=== PATIENT | female | born 1960 | race Caucasian/White ===

== ENCOUNTER 2016-07-06 08:56 | Inpatient (IN) | payer BC, OTHER ==
[2016-06-18 09:49] VITALS: BMI 38.0
--- NOTE | 2016-06-18 10:02 | PAT Medication Instructions ---
Service Date Jun 18, 2016. Current Home Medication List Acetaminophen (Tylenol), 1,000 MG PO Q8 PRN for Pain Albuterol (Ventolin), 2 PUFFS INH QID PRN for Shortness of Breath Glimepiride (Glimepiride), 1 TAB PO QAM Lorazepam (Ativan), 1 MG PO QPM Melatonin (Kp Melatonin), 1 TAB PO HS PRN for Sleep Meloxicam (Mobic), 15 MG PO QAM Metformin Hcl (Glucophage), 1,000 MG PO BID Mometasone Furoate-Formoterol (Dulera 200/5 Mcg), 2 PUFFS INH BID Pantoprazole (Protonix), 40 MG PO QPM Sertraline (Zoloft), 100 MG PO QPM Medication Instructions For Your Scheduled Surgery - Hold the following medications 2 weeks prior to surgery per surgeon's instructions: Meloxicam (Mobic), 15 MG PO QAM - Hold the following medications 48 hours prior to surgery: Metformin Hcl (Glucophage), 1,000 MG PO BID - Hold the following medications the morning of surgery: Glimepiride (Glimepiride), 1 TAB PO QAM - Take the following medications the morning of surgery with a sip of water OTHERWISE NOTHING TO EAT OR DRINK AFTER MIDNIGHT: Albuterol (Ventolin), 2 PUFFS INH QID PRN for Shortness of Breath (use if needed ; BRING TO HOSPITAL) Acetaminophen (Tylenol), 1,000 MG PO Q8 PRN for Pain (may use if needed up to 4 hours prior to surgery) Mometasone Furoate-Formoterol (Dulera 200/5 Mcg), 2 PUFFS INH BID - Take the following medications as scheduled the night before surgery: Albuterol (Ventolin), 2 PUFFS INH QID PRN for Shortness of Breath Acetaminophen (Tylenol), 1,000 MG PO Q8 PRN for Pain Pantoprazole (Protonix), 40 MG PO QPM Lorazepam (Ativan), 1 MG PO QPM Melatonin (Kp Melatonin), 1 TAB PO HS PRN for Sleep Sertraline (Zoloft), 100 MG PO QPM Mometasone Furoate-Formoterol (Dulera 200/5 Mcg), 2 PUFFS INH BID If you have any questions please call us at [phone] or [phone] or [phone]
[2016-06-18 10:56] LABS: BASO % 0.1 %; BASO ABS # 0.01 K/uL (0-0.2); COMPLETE YES; EOS % 1.9 %; HEMATOCRIT 36.1 % (37-47); IG% 0.6 %; LYMPH % 17.9 %; LYMPH ABS # 1.39 K/uL (1.2-3.4); MEAN CELL VOLUME 81.9 fL (80-100); MEAN CORPUSCULAR HEMOGLOBIN 26.5 pg (25-34); MEAN CORPUSCULAR HGB CONC 32.4 g/dl (32-36); MEAN PLATELET VOLUME 9.7 fL (7.4-10.4); MONO % 6.7 %; NEUT % 72.8 %; PLATELET COUNT 203 K/uL (130-400); RED BLOOD COUNT 4.41 M/uL (4.2-5.4); WHITE BLOOD COUNT 7.75 K/uL (4.8-10.8)
[2016-06-18 11:10] LABS: INR 1.1 (0.9-1.1); PROTHROMBIN TIME (PATIENT) 11.3 SECONDS (9.0-12.0)
[2016-06-18 12:06] LABS: ESTIMATED AVERAGE GLUCOSE 143 mg/dl; HA1C FLAG Normal (Normal)
[2016-06-18 12:36] LABS: BLOOD UREA NITROGEN 17 mg/dl (7-18); BUN/CREATININE RATIO 26.2 (10-20); CALCIUM 9.2 mg/dl (8.5-10.1); CARBON DIOXIDE 29 mmol/L (21-32); CHLORIDE 105 mmol/L (98-107); CREATININE 0.65 mg/dl (0.60-1.20); GLUCOSE 125 mg/dl (70-99); POTASSIUM 3.9 mmol/L (3.5-5.1); SODIUM 141 mmol/L (136-145)
[2016-06-18 12:39] LABS: C-REACTIVE PROTEIN < 0.29 mg/dl (0-0.29)
--- NOTE | 2016-07-02 08:22 | HISTORY & PHYSICAL EXAMINATION ---
DATE OF ADMISSION: 07/06/2016 CHIEF COMPLAINT: Right knee pain. HISTORY OF PRESENT ILLNESS: A 56-year-old white female now about 3 years out from left knee placement who presents for surgical treatment of her right knee. She has got a long history of right knee pain and discomfort and I have been managing this over the past several years with oral medicines and injections. This has become less successful over time. She gets a fairly sharp pain and catching in her knee and causes it to buckle. She has pain that wax and wane and sometimes pretty severe pain for several days before it lets up. The shots only help her temporarily for about a week or so. She would like to have her right knee fixed. Of note, the patient does have a history of a right knee arthroscopy on this side back in 2010 with minimal relief. PAST MEDICAL HISTORY: 1. Diabetes x10 years. 2. Sleep apnea. 3. Anxiety/depression. 4. Gastroesophageal reflux disease. 5. Obesity with a BMI of 38.7. 6. Skin cancer. PAST SURGICAL HISTORY: Include: 1. Herniorrhaphy. 2. Bowel resection. 3. Bilateral knee scopes. 4. Left knee replacement done 07/24/2013. 5. Hysterectomy. 6. x2. ALLERGIES: None. CURRENT MEDICINES: Include: 1. Metformin. 2. Glimepiride. 3. Meloxicam. 4. Zoloft. 5. Lorazepam. 6. Melatonin. 7. Dulera inhaler. SOCIAL HISTORY: A 56-year-old female. She is from [place]. She is . Rare alcohol intake. Does not smoke. FAMILY HISTORY: Noncontributory. REVIEW OF SYSTEMS: Significant for diabetes. Denies any chest pain, no shortness of breath. No history of DVT or PE. PHYSICAL EXAMINATION: GENERAL: Reveals healthy pleasant, middle-aged female. Looks to be in pretty reasonable health. HEAD, EYES, EARS, NOSE, AND THROAT EXAMINATION: Benign. NECK: Supple. No lymphadenopathy. LUNGS: Clear to auscultation. HEART: Has a regular rate and rhythm. ABDOMEN: Soft, nontender, nondistended. EXTREMITY EXAMINATION: Grossly neurovascularly intact except as follows: Examination of the right leg reveals the patient walks with a slight bit of a limp. She does have bony hypertrophy diffusely around her knee, but more medially than laterally. Small knee effusion. Range of motion about 10 degrees short of full extension to 115 degrees of flexion. Fairly stiff knee. No pain with hip motion. She is neurologically intact. X-RAYS: X-rays of the right knee reviewed. It shows advanced right knee tricompartmental DJD. She has got complete loss of medial joint space. She has osteophytes in all 3 compartments. She has got subchondral sclerosis. ASSESSMENT: A 56-year-old white female 3 years out from left knee replacement with advanced right knee degenerative joint disease. She has failed conservative treatment. She would like to have her right knee replaced. PLAN: We will take her to the operating room and do right total knee replacement. The risks of this procedure were explained to the patient including but not limited to DVT, PE, , infection, neurological injury, vascular injury, bleeding problem, pain, limited range of motion, stiffness, failure to relieve symptoms, incomplete relief of symptoms, need for further surgery in the future, fracture, leg length inequality, nerve palsy, etc. The patient understands and desires to proceed. Informed consent was obtained. As far as discharge plans, she is planning to be discharged to home and do outpatient therapy. I will be seeing her back 2 weeks postop.
[2016-07-06] VITALS (8 sets, daily range): BP systolic 107–130; BP diastolic 68–80; PULSE 66–89; TEMP 36.5–36.9; O2SAT 92–99; Ht 160 cm; Wt 99.0 kg
[~2016-07-06] VITALS: Ht 160 cm; Wt 99.0 kg
[~2016-07-06 08:56] MED LIST: ACET-1256 PO; ACETAMINOPHEN 500 MG TAB PO SCH; ALBUAER2 INH; AMR2 PO; ATV/1 PO; BUPIVACAINE 0.25% 30 ML VIAL ONE; BUPIVACAINE 0.5 % 5 MG/1 ML PF 10ML VIAL ONE; BUPIVACAINE LIPOSOME 266 MG, BUPIVACAINE/EPINEPHRINE INJ 50 ML, SODIUM CHLORIDE 0.9% PF... INFIL SCH; CEFAZOLIN 2000 MG/60 ML D5W 60 ML IV SCH; FAMOTIDINE 20 MG TAB PO SCH; FLUT1INH INH; GABAPENTIN 300 MG CAP PO SCH; LACTATED RINGER'S 1000ML 1,000 ML IV SCH; LACTATED RINGER'S 1000ML 500 ML IV ONE; LACTATED RINGER'S 1000ML IV SCH; MELA1TAB5 PO; MELO7.5T5 PO; METF-384 PO; METOCLOPRAMIDE HCL 10 MG TAB PO SCH; PANT1TAB48 PO; SCOPOLAMINE 1.5 MG TDSY TD SCH; SERT-234 PO; TRANEXAMIC ACID INJ 1,000 MG in SODIUM CHLORIDE 0.9% 100ML 100 ML IV SCH
[2016-07-06] MEDS ORDERED: ONDANSETRON INJ 2 MG/ML 2 ML VIAL ONE (09:14)
[2016-07-06] MEDS ORDERED: FENTANYL CITRATE INJ 50 MCG/1 ML 2 ML VIAL ONE (09:14)
[2016-07-06] MEDS ORDERED: MIDAZOLAM HCL 1 MG/ML 2ML VIAL ONE ×2 (09:14)
[2016-07-06] MEDS ORDERED: PROPOFOL IV EMULSION 10 MG/ML 20 ML VIAL IV ONE ×2 (09:14→11:52)
--- NOTE | 2016-07-06 10:28 | History & Physical Bridge Note ---
H&P Re-Evaluation Bridge Note: I have examined the patient, reviewed the History & Physical and in the interval since the performance of the History & Physical I have noted the following changes of clinical significance: No changes noted
[2016-07-06] MEDS ORDERED: SODIUM CHLORIDE 0.9% PF 50 ML VIAL ONE (10:33)
[2016-07-06] MEDS ORDERED: BUPIVACAINE/EPINEPHRINE 0.25% 1:200,000 30 ML VIAL ONE (10:33)
[2016-07-06] MEDS ORDERED: BACITRACIN 50000 UNIT VIAL ONE (10:34)
[2016-07-06] MEDS ORDERED: BUPIVACAINE LIPOSOME 1/3% 266 MG/20 ML VIAL INFIL ONE (10:34)
[2016-07-06] MEDS ORDERED: ATROPINE SULFATE 0.1 MG/ML 5ML SYR IV PRN (12:00)
[2016-07-06] MEDS ORDERED: NALOXONE HCL 0.4 MG/1 ML VIAL/CARP IV PRN (12:00)
[2016-07-06] MEDS ORDERED: PROMETHAZINE HCL INJ 12.5 MG in SODIUM CHLORIDE 0.9% 50ML 50 ML IV PRN (12:00)
[2016-07-06] MEDS ORDERED: EpHEDrine SULFATE INJ 50 MG/ML AMP IV PRN (12:00)
[2016-07-06] MEDS ORDERED: FLUMAZENIL 0.1 MG/1 ML 10 ML VIAL IV PRN (12:00)
[2016-07-06] MEDS ORDERED: ONDANSETRON INJ 2 MG/ML 2 ML VIAL IV PRN ×2 (12:00→12:30)
--- NOTE | 2016-07-06 12:20 | [facility] Post Operative Brief Note ---
Immediate Operative Summary Operative Date July 06, 2016. Pre-Operative Diagnosis Right Knee Degenerative Joint Disease Post-Operative Diagnosis Same as preop Procedure(s) Performed Right Total Knee Arthroplasty Surgeon Dr. Lynne Pattern Weaver Surgeon(s) Brian Castillo PA-C Estimated Blood Loss 50 mL Findings Right Knee DJD Fluids (cc crystalloids) 1300 cc Specimens A. Right Knee Bone and Tissue Drains None Anesthesia Spinal Complication(s) None Disposition Recovery Room / PACU
[2016-07-06] MEDS ORDERED: SILVER SULFADIAZINE 1% CR 50 GM JAR EXT PRN (12:30)
[2016-07-06] MEDS ORDERED: ALUMINUM/MAGNESIUM/SIMETH (MAALOX MAX) 30 ML UDC PO PRN (12:30)
[2016-07-06] MEDS ORDERED: DEXTROSE 50% 50 ML SYR IV PRN (12:30)
[2016-07-06] MEDS ORDERED: GLUCOSE 40% GEL 15 GM TUBE PO PRN (12:30)
[2016-07-06] MEDS ORDERED: MoRPHine SULFATE 2 MG/ML CARP IV PRN (12:30)
[2016-07-06] MEDS ORDERED: ZOLPIDEM TARTRATE 5 MG TAB PO PRN (12:30)
[2016-07-06] MEDS ORDERED: GLUCOSE 10 TABS/TUBE PO PRN (12:30)
[2016-07-06] MEDS ORDERED: ALBUTEROL HFA 8 GM INHALER INH PRN (12:30)
[2016-07-06] MEDS ORDERED: NON-FORMULARY MEDICATION (Melatonin (Kp Melatonin) 1 TAB) PO PRN (12:30)
[2016-07-06] MEDS ORDERED: GLUCAGON FOR INJ 1 MG VIAL SQ PRN (12:30)
[2016-07-06] MEDS ORDERED: METOCLOPRAMIDE HCL INJ 5 MG/ML 2 ML VIAL IV PRN (12:30)
[2016-07-06] MEDS ORDERED: MAGNESIUM HYDROXIDE SUSP 30 ML UDC PO PRN (12:30)
[2016-07-06] MEDS ORDERED: DiphenhydrAMINE HCL 50 MG/ML VIAL IV PRN (12:30)
[2016-07-06] MEDS ORDERED: BISACODYL 10 MG SUPP PR PRN (12:30)
--- NOTE | 2016-07-06 12:51 | DIAGNOSTIC IMAGING REPORT ---
TWO VIEWS RIGHT KNEE CLINICAL HISTORY: Postoperative examination. FINDINGS: AP and crosstable lateral portable views of the right knee are obtained. A right knee arthroplasty is in near anatomic alignment. There has been undersurface remodeling of the patella. No acute fracture is seen. There are expected postoperative changes around the knee including skin clips, soft tissue edema, and subcutaneous gas. IMPRESSION: Expected postoperative changes status post right knee arthroplasty. No acute fracture is seen. Electronically signed by: Anjel Hugo M.D. 07/06/2016 12:49 PM Dictated Date/Time: 07/06/2016 12:49 PM
--- NOTE | 2016-07-06 13:22 | OPERATIVE REPORT ---
DATE OF OPERATION: 07/06/2016 SURGEON: Dr. Ozzie Lynne. [employer] SUPERVISOR: RIYA Heart PREOPERATIVE DIAGNOSIS: Right knee degenerative joint disease. POSTOPERATIVE DIAGNOSIS: Same. PROCEDURE PERFORMED: Right cemented posterior stabilized total knee arthroplasty. COMPLICATIONS: None. ESTIMATED BLOOD LOSS: 50 mL. FLUID REPLACEMENT: 1300 mL crystalloid fluid replacement. TOURNIQUET TIME: 46 minutes at 300 mmHg. ANESTHESIA: Spinal with adductor canal block. DRAINS: None. SPECIMENS: Right knee sent for pathology. OPERATIVE INDICATIONS: The patient is a 56-year-old white female who has had a long history of bilateral knee pain and discomfort. She has undergone bilateral knee arthroscopies done elsewhere several years ago without much relief. She has been through extensive conservative treatment including oral medicines and injections. She had her left knee replaced 3 years ago and has done well from this. Pain became disabling in her right knee and she elected to proceed with total knee arthroplasty. OPERATIVE FINDINGS: Operative findings revealed advanced right knee DJD. She had grade 4 [id number] disease in all 3 compartments, most severe in the medial side. She had complete loss of her cartilage at the end of the medial femoral condyle and the top of the tibia on the medial side. There were more spotty changes laterally and pretty extensive in the patellofemoral joint as well. She had osteophytes throughout. Moderate size joint effusion. OPERATIVE IMPLANTS: Operative implants consisted of: 1. Biomet Vanguard size 67.5 right posterior stabilized femoral component. 2. Biomet size 71 tibial tray. 3. A 10-mm posterior stabilized polyethylene insert. 4. A 34 x 8.5 All-Poly patella. OPERATIVE PROCEDURE: The patient was taken to the operating room, identified and placed on the operating table in the supine position. All contact areas were appropriately padded. IV antibiotics provided by the anesthesia team. A spinal anesthetic and adductor canal block had been provided in the holding area. Cruz catheter was placed in sterile fashion. Right thigh tourniquet was then placed and the right lower extremity was then prepped and draped in the usual sterile fashion. The right leg was elevated and exsanguinated with Esmarch and tourniquet was placed at 300 mmHg. An anterior approach to the right knee was then performed through a longitudinal incision centered over the patella. Sharp dissection was carried through the subcutaneous tissues down to the level of the extensor mechanism. A medial parapatellar arthrotomy incision was made. Some subperiosteal dissection was carried out medially. The fat pad was resected from beneath the patellar tendon. The lateral patellofemoral ligament was released. The patella was everted and the knee was flexed. The osteophytes were taken off the distal femur. The ACL and PCL were then released from the distal femur and the tibia subluxated anteriorly. The external tibial alignment jig was then placed in the anterior face of the tibia and adjusted 14 mm medially. Proximal tibial cut was made to remove about 2 mm of bone from the most deficient aspect of the medial tibial plateau. The tibia was sized to a size 71. Some osteophytes were removed medial and posteromedially. Attention was then drawn to the femur. The distal femur was entered with a sharp drill bit. Intramedullary canal was suctioned. A right 5-degree valgus cutting guide was placed. Distal femoral cutting block was pinned in place. Distal femoral cut was made to take an additional 3 mm of bone off the distal femur. The femur was then sized to a size 67.5. We did downsize this slightly. The AP cutting block was pinned parallel to the epicondylar axis, which was 3 degrees of external rotation. The anterior cut, anterior chamfer, posterior cut, and posterior chamfer cuts were made. Box cutting guide was placed and adjusted slightly lateral and the box cut was made. The knee was flexed. The remnants of the medial and lateral menisci were excised. The osteophytes were taken off the posterior aspect of the femur. Trial femoral component was placed. Tibial tray was pinned in maximum external rotation and the drill and the stem punch were used to create a defect in the proximal tibia for the tibial tray. The knee was then trialed and the 10-mm insert fit most appropriately. Attention was then drawn to the patella. The patella was cleaned of all soft tissues. Patellar thickness measured 22 mm in thickness and was cut down to 13. It was sized to a size 34 patella. Lug holes were drilled for a 34 patella. Lateral osteophyte was removed. Patella button was placed. Knee was taken through range of motion and the patella tracked nicely with no thumbs test. Attention was then drawn toward placement of permanent components. All trial components were removed. A bone plug was placed in the distal femur to limit blood loss. A double batch of Palacos G cement was mixed. A right size 67.5 posterior stabilized femoral component, size 71 tibial tray, a 10-mm posterior stabilized polyethylene insert, and a 34 x 8.5 All-Poly patella were then cemented in place. Knee was brought out into full extension until cement hardened. A final cement check was then performed. Pericapsular tissues were injected with 100 mL of a combination of 20 mL of Exparel, 30 mL of normal saline, and 50 mL of 0.25% Marcaine with epinephrine. The patient did receive 1 gram of tranexamic acid. The tourniquet was then let down for final tourniquet time of 46 minutes. Hemostasis was assured with use of electrocautery. The wound was once again irrigated. The extensor mechanism was then closed with a combination of #1 PDS suture and #1 Vicryl suture in a [id number] fashion. Extensor mechanism was checked and found to be intact. Subcutaneous tissues were then closed with 2-0 Dexon suture in a buried interrupted fashion. Skin was closed skin seth. Leg was then cleaned and dried and a sterile dressing with Xeroform, 4 x 4, sterile cast padding and Santiago bandage were applied. The patient then transferred to the recovery room in stable condition. The patient tolerated the procedure well. There were no complications. All needle and sponge counts were correct at the end of the operation. I attest to the content of the Intraoperative Record and any orders documented therein. Any exceptio ns are noted below.
--- NOTE | 2016-07-06 13:27 | Anesthesiology Progress Note ---
Anesthesia Post Op Note Date & Time July 06, 2016 at 13:27 Vital Signs Pain Intensity: 0 Vital Signs Past 12 Hours Date Time Temp Pulse Resp B/P Pulse Ox O2 Delivery O2 Flow Rate FiO2 07/06/16 13:15 75 14 114/69 98 Nasal Cannula 3 07/06/16 13:05 73 16 111/79 98 Nasal Cannula 3 07/06/16 12:55 75 16 111/71 98 Nasal Cannula 3 07/06/16 12:45 72 16 111/64 98 Nasal Cannula 3 07/06/16 12:35 76 16 104/58 99 Nasal Cannula 3 07/06/16 12:25 74 16 103/68 100 Nasal Cannula 4 07/06/16 12:17 36.1 80 16 107/61 100 Nasal Cannula 4 07/06/16 09:16 36.5 89 18 128/80 96 Room Air Notes Mental Status: alert / awake / arousable, participated in evaluation Pt Amnestic to Procedure: Yes Nausea / Vomiting: adequately controlled Pain: adequately controlled Airway Patency, RR, SpO2: stable & adequate BP & HR: stable & adequate Hydration State: stable & adequate Neuraxial Anesthesia: was administered, sensory block is resolving Anesthetic Complications: no major complications apparent
[2016-07-06] MEDS: SODIUM CHLORIDE 0.9% 1000ML 1,000 ML IV SCH ×2 (14:46→20:15)
[2016-07-06] MEDS: KETOROLAC TROMETHAMINE 30 MG/ML VIAL IV. SCH ×2 (15:30→21:50)
[2016-07-06] MEDS: CHECK SCOPOLAMINE PATCH PLACEMENT SCH ×2 (15:31→23:26)
--- NOTE | 2016-07-06 15:56 | PROGRESS NOTE ---
DATE: 07/06/2016 DATE: 07/06/2016. SUBJECTIVE: A 56-year-old female postop from a right knee replacement. She is doing well. Just starting to get some function in her foot. Does not have any real sensation in her pain yet. Denies any chest pain or shortness of breath. Not feeling dizzy or lightheaded. OBJECTIVE: VITAL SIGNS: Temperature 36.5. Vital signs stable. PHYSICAL EXAMINATION: GENERAL: Reveals a pleasant, middle-aged female. She is sitting up in bed and talking to her . She looks pretty comfortable. LUNGS: Clear to auscultation. HEART: Regular rate and rhythm. ABDOMEN: Soft, nontender, nondistended. EXTREMITY EXAMINATION: Grossly neurovascularly intact except as follows: Examination of the right leg reveals the dressing to be clean, dry and intact. Leg is well aligned. Just starting to be able to flex and extend her toes just slightly. X-RAYS: X-rays of the right knee from recovery room were reviewed. It shows a cemented posterior stabilized total knee arthroplasty. Components looked to be in good position. No signs of problems. ASSESSMENT: A 56-year-old white female postop from a right knee replacement, doing pretty well. Pain is controlled. Her neurological function is just starting to return. The spinal is still in effect. PLAN: 1. DVT prophylaxis including thigh-high TEDs, SCDs, and aspirin twice a day. 2. PT/OT. Weightbearing as tolerated. Right total knee protocol. 3. Pain control. Doing well with current pain regimen. We will obviously have to supplement this as the spinal wears off. 4. IV antibiotics x24 hours. 5. Disposition: Plan to discharge to home and she is going to do outpatient therapy once adequately recovered.
[2016-07-06] MEDS: INSULIN HUMAN REGULAR SC SCH ×2 (17:15→21:51)
[2016-07-06] MEDS: FERROUS GLUCONATE 324 MG TAB PO SCH (17:39)
[2016-07-06] MEDS: CEFAZOLIN IV 2,000 MG in DEXTROSE 5% 50ML 50 ML IV SCH (17:39)
[2016-07-06] MEDS ORDERED: TRANEXAMIC ACID INJ 1,000 MG in SODIUM CHLORIDE 0.9% 100ML 100 ML IV SCH (18:00)
[2016-07-06] MEDS: OXYCODONE HCL IR 5 MG TAB (IMMEDIATE RELEASE) PO PRN ×2 (18:27→23:29)
[2016-07-06] MEDS: LORAZEPAM 1 MG TAB PO SCH (21:48)
[2016-07-06] MEDS: TAPENTADOL ER 50 MG TABCR PO SCH (21:48)
[2016-07-06] MEDS: PANTOprazole SOD 40 MG TAB PO SCH (21:49)
[2016-07-06] MEDS: ACETAMINOPHEN 500 MG TAB PO SCH (21:49)
[2016-07-06] MEDS: ASPIRIN 325 MG ECTAB PO SCH (21:49)
[2016-07-06] MEDS: DOCUSATE SODIUM 100 MG CAP PO SCH (21:49)
[2016-07-06] MEDS: SERTRALINE HCL 100 MG TAB PO SCH (21:49)
[2016-07-07] VITALS (7 sets, daily range): BP systolic 113–118; BP diastolic 66–76; PULSE 76–88; TEMP 36.9–37.3; O2SAT 90–94
[2016-07-07] MEDS: CEFAZOLIN IV 2,000 MG in DEXTROSE 5% 50ML 50 ML IV SCH (02:13)
[2016-07-07] MEDS: SODIUM CHLORIDE 0.9% 1000ML 1,000 ML IV SCH (04:00)
[2016-07-07] MEDS: KETOROLAC TROMETHAMINE 30 MG/ML VIAL IV. SCH ×4 (04:01→21:54)
[2016-07-07] MEDS: ACETAMINOPHEN 500 MG TAB PO SCH ×3 (06:00→21:26)
[2016-07-07 06:12] LABS: HEMATOCRIT 31.4 % (37-47); MEAN CORPUSCULAR HEMOGLOBIN 27.4 pg (25-34); MEAN CORPUSCULAR HGB CONC 33.4 g/dl (32-36); MEAN PLATELET VOLUME 9.9 fL (7.4-10.4); PLATELET COUNT 134 K/uL (130-400); RED BLOOD COUNT 3.83 M/uL (4.2-5.4); WHITE BLOOD COUNT 8.52 K/uL (4.8-10.8)
[2016-07-07 06:43] LABS: BUN/CREATININE RATIO 22.5 (10-20); CALCIUM 7.8 mg/dl (8.5-10.1); CREATININE 0.57 mg/dl (0.60-1.20); POTASSIUM 4.1 mmol/L (3.5-5.1)
--- NOTE | 2016-07-07 07:47 | Anesthesiology Progress Note ---
Anesthesia Post Op Note Date & Time July 07, 2016 at 07:48 Vital Signs Pain Intensity: 4.0 Vital Signs Past 12 Hours Date Time Temp Pulse Resp B/P Pulse Ox O2 Delivery O2 Flow Rate FiO2 07/07/16 04:10 36.9 77 16 113/73 91 Room Air 07/06/16 23:20 Room Air 07/06/16 23:10 36.7 72 16 109/71 92 Room Air 07/06/16 19:57 36.8 75 16 107/73 96 Room Air Notes Mental Status: alert / awake / arousable, participated in evaluation Pt Amnestic to Procedure: Yes Nausea / Vomiting: adequately controlled Pain: adequately controlled Airway Patency, RR, SpO2: stable & adequate BP & HR: stable & adequate Hydration State: stable & adequate Neuraxial Anesthesia: was administered, sensory block resolved Anesthetic Complications: no major complications apparent
[2016-07-07] MEDS: CHECK SCOPOLAMINE PATCH PLACEMENT SCH ×2 (08:33→16:25)
[2016-07-07] MEDS: FERROUS GLUCONATE 324 MG TAB PO SCH ×3 (08:33→19:00)
[2016-07-07] MEDS: MULTIVITAMIN TAB PO SCH (08:34)
[2016-07-07] MEDS: ASPIRIN 325 MG ECTAB PO SCH ×2 (08:34→21:26)
[2016-07-07] MEDS: DOCUSATE SODIUM 100 MG CAP PO SCH ×2 (08:34→21:27)
[2016-07-07] MEDS: OXYCODONE HCL IR 5 MG TAB (IMMEDIATE RELEASE) PO PRN ×2 (08:35→19:04)
[2016-07-07] MEDS: TAPENTADOL ER 50 MG TABCR PO SCH ×2 (08:35→21:32)
[2016-07-07] MEDS: GLIMEPIRIDE 2 MG TAB PO SCH (08:35)
[2016-07-07] MEDS: VILANTEROL IN SCH (08:36)
[2016-07-07] MEDS: FLUTICASONE FUROATE IN SCH (08:36)
[2016-07-07] MEDS: INSULIN HUMAN REGULAR SC SCH ×4 (08:44→22:32)
[2016-07-07] MEDS ORDERED: PANTOprazole SOD 40 MG TAB PO SCH (09:00)
--- NOTE | 2016-07-07 15:40 | PROGRESS NOTE ---
DATE: 07/07/2016 SUBJECTIVE: A 56-year-old white female postop day #1 from a right knee replacement. She is doing pretty well. Some pain but reasonably controlled. Therapy went pretty well. No chest pain or shortness of breath. OBJECTIVE: VITAL SIGNS: Temperature is 37.1. Vital signs stable. PHYSICAL EXAMINATION: GENERAL: Reveals pleasant, middle-aged female. She is sitting up in her bedside chair and looks pretty comfortable. EXTREMITIES: Examination of the right leg reveals the dressing to be clean, dry and intact. She can dorsiflex and plantarflex her foot appropriately. She is neurologically intact. LABORATORY DATA: Hemoglobin 10.5, hematocrit 31.4. Electrolytes are stable. ASSESSMENT: A 56-year-old white female postop day #1 from a right total knee replacement, doing pretty well. Pain is controlled. PLAN: 1. DVT prophylaxis including thigh-high TEDs, SCDs, and aspirin twice a day. 2. PT/OT. Weightbearing as tolerated. Right total knee protocol. 3. Pain control, doing pretty well with current pain regimen. 4. Disposition: Plan to discharge to home and she is going to do outpatient therapy once adequately recovered.
[2016-07-07] MEDS ORDERED: ACET-1138 PO (20:08)
[2016-07-07] MEDS ORDERED: RXC5 PO (20:08)
[2016-07-07] MEDS ORDERED: ASPEC325 PO (20:08)
[2016-07-07] MEDS ORDERED: MORP15TA19 PO (20:08)
[2016-07-07] MEDS ORDERED: FRRG PO (20:08)
--- NOTE | 2016-07-07 20:14 | Discharge Instructions ---
Discharge Instructions Date of Service July 07, 2016. Admission Reason for Admission: Right Knee Degenerative Joint Disease Discharge Discharge Diagnosis / Problem: Right Knee Replacement Discharge Goals Goal(s): Decrease discomfort, Improve function, Increase independence, Improve disease control, Therapeutic intervention Activity Recommendations Activity Limitations: per Instructions/Follow-up section Weightbearing Status: Right weightbearing . Instructions / Follow-Up Instructions / Follow-Up ACTIVITY RECOMMENDATIONS: Physical Therapy: * You will go to physical therapy three times each week for four to six weeks after your surgery in order to regain your knee range of motion and to retrain your knee to work properly. * It is just as important to make sure you are getting your knee perfectly straight as it is to regain your knee bend. * Taking a pain pill an hour before therapy can help you have a more productive and comfortable therapy session. Home Exercise: * You were shown a series of exercises (heel props, heel slides, etc.) in the hospital. Do these exercises three to four times each day including the exercises you were shown in physical therapy. Walking: * Get up and walk several times each day. For the first four weeks, try not to stand or walk for more than one hour at a time. If you do stand or walk for more than one hour, you will not hurt anything, but your knee and leg will likely swell. * As you feel comfortable, you may change from the walker or crutches to a cane and then to independent walking. MEDICATIONS: New Medicine: * You will likely be taking one or more of these medications: 1. MS Contin - A long-acting pain medication. Take 1 tablet twice a day for the first ten days to decrease your baseline level of pain. 2. Oxycodone - A quick and shorter-acting pain medication. Take one to two tablets every four to six hours to lessen your pain. 3. Iron Sulfate - Take three times each day for the month after surgery to help you replace the blood lost during surgery. 4. Aspirin - Thins your blood to lessen the chance of forming a blood clot. * The most common side effects of pain medicine and iron are nausea and constipation. If nausea or constipation is too much of a problem or if you have any questions about your new medicines or doses, call [facility] at . We will try to help you manage these issues. VERY IMPORTANT TO READ AND REVIEW" Pain: * The immediate post-operative period after knee replacement surgery is often quite painful. * You are given a prescription for pain medicine. You should take it, as directed, when you need it, especially before physical therapy and before going to bed. Pain that interferes with sleep is very common and can last several months. * You will likely need pain medicine for the first four to six weeks. It will not stop all of the pain. The pain will lessen and as you feel better, you may change to milder pain medicine such as Tylenol. * The most common side effects of pain medicine are nausea and constipation, so don't take more than you need. SPECIAL CARE INSTRUCTIONS: TEDs/Elastic Stockings: * The white elastic stockings help limit swelling and prevent blood clots from forming in your legs. The more you wear them, the more they work. * Wear them for six weeks after knee replacement surgery and four weeks after partial knee replacement. Prevention of Infection: * Take antibiotics one hour before any dental cleaning, dental work, urological procedure, gastrointestinal procedure or any invasive surgery in order to prevent your new joint from getting infected. * You may get the antibiotics from the doctor performing the procedure or you may call our office at before and we will call in a prescription to the pharmacy of your choice. Things to Watch For: * Drainage from the incision site that occurs more than one week after your surgery. * Severely increased knee/leg pain or swelling. * Increased redness at the incision site. * Fever above 102 degrees Fahrenheit. * Unusual chest pain or shortness of breath. * Unusual pain or burning with urination. Call [facility] at with any of the above problems or if you have any questions about your medicines or recovery. FOLLOW UP VISIT: Make an appointment to see your doctor for approximately two weeks after surgery for a progress check and staple removal by calling the office at . Current Hospital Diet Patient's current hospital diet: Diabetes Type 2 Diet Discharge Diet Recommended Diet: Regular Diet Procedures Procedures Performed: Right Total Knee Arthroplasty Pending Studies Studies pending at discharge: no Laboratory Results Hemoglobin A1c Test 06/18/16 10:07 Range/Units Estimated Average Glucose 143 mg/dl Hemoglobin A1c 6.6 H 4.5-5.6 % Medical Emergencies . Who to Call and When: Medical Emergencies: If at any time you feel your situation is an emergency, please call 911 immediately. . Non-Emergent Contact Non-Emergency issues call your: Surgeon . "Provider Documentation" section prepared by Ozzie Lynne. . VTE Core Measure Inpt VTE Proph given/why not?: Other Anticoagulation, T.E.D. Stockings, SCD's
[2016-07-07] MEDS: LORAZEPAM 1 MG TAB PO SCH (21:32)
[2016-07-07] MEDS: SERTRALINE HCL 100 MG TAB PO SCH (21:54)
[2016-07-07] MEDS: PANTOprazole SOD 40 MG TAB PO SCH (21:54)
[2016-07-08] MEDS: CHECK SCOPOLAMINE PATCH PLACEMENT SCH
[2016-07-08 01:19] VITALS: O2SAT 94
[2016-07-08] MEDS: KETOROLAC TROMETHAMINE 30 MG/ML VIAL IV. SCH ×2 (03:31→10:05)
[2016-07-08] MEDS: ACETAMINOPHEN 500 MG TAB PO SCH (05:45)
--- NOTE | 2016-07-08 07:45 | PROGRESS NOTE ---
DATE: 07/08/2016 DATE: 07/08/2016. SUBJECTIVE: A 56-year-old white female postop day 2 from right knee replacement. She is doing pretty well. Pain seems to be a bit better today. Very manageable. No chest pain or shortness of breath. Not feeling dizzy or lightheaded. OBJECTIVE: VITAL SIGNS: Temperature 37.1. Vital signs stable. PHYSICAL EXAMINATION: GENERAL: Reveals a healthy, pleasant middle-aged female, she is sitting up in her bed, looks pretty comfortable. LUNGS: Clear to auscultation. HEART: Regular rate and rhythm. ABDOMEN: Soft, nontender, nondistended. EXTREMITY EXAMINATION: Grossly neurovascularly intact except as follows: Examination of right lower extremity reveals the dressing to be clean, dry and intact. Not much swelling. No drainage. Calf is soft and supple. She is neurologically intact. ASSESSMENT: A 56-year-old white female postop day 2 from right knee replacement, doing pretty well. PLAN: 1. DVT prophylaxis including thigh-high TEDs, SCDs, and aspirin twice a day. 2. PT/OT. Weightbearing as tolerated. Right total knee protocol. 3. Pain control. Doing pretty well with current pain regimen. 4. Disposition. Plan to discharge to home and she is going to do outpatient therapy.
[2016-07-08 07:53] VITALS: BP 116/74; PULSE 88; TEMP 36.9; O2SAT 93
[2016-07-08 08:00] VITALS: O2SAT 93
[2016-07-08] MEDS: FERROUS GLUCONATE 324 MG TAB PO SCH (09:02)
[2016-07-08] MEDS: GLIMEPIRIDE 2 MG TAB PO SCH (09:02)
[2016-07-08] MEDS: TAPENTADOL ER 50 MG TABCR PO SCH (09:03)
[2016-07-08] MEDS: FLUTICASONE FUROATE IN SCH (09:03)
[2016-07-08] MEDS: VILANTEROL IN SCH (09:03)
[2016-07-08] MEDS: MULTIVITAMIN TAB PO SCH (09:03)
[2016-07-08] MEDS: INSULIN HUMAN REGULAR SC SCH ×2 (09:04→12:57)
[2016-07-08] MEDS: OXYCODONE HCL IR 5 MG TAB (IMMEDIATE RELEASE) PO PRN (09:04)
[2016-07-08 09:54] VITALS: BP 116/74; PULSE 88; TEMP 36.9; O2SAT 93
[2016-07-08] MEDS: ASPIRIN 325 MG ECTAB PO SCH (10:05)
[2016-07-08] MEDS: DOCUSATE SODIUM 100 MG CAP PO SCH (10:06)
--- NOTE | 2016-07-15 15:15 | DISCHARGE SUMMARY ---
NOTICE TO RECEIVING REPUBLICAN/AGENCY This information is strictly Confidential and protected under [place] law. [place] law prohibits you from making any further disclosure of this information unless further disclosure is expressly permitted by the written consent of the person to whom it pertains or is authorized by law. A general authorization for the release of medical or other information is not sufficient for this purpose. Hospital accepts no responsibility if the information is made available to any other person, INCLUDING THE PATIENT. ADMITTING PHYSICIAN AND SURGEON: Dr. Lynne. ADMITTING DIAGNOSIS: Right knee degenerative joint disease. SURGERY PERFORMED: Right total knee arthroplasty. SECONDARY DIAGNOSES: Diabetes, sleep apnea, anxiety, depression, gastroesophageal reflux disease, obesity, skin cancer. CONSULTS: None obtained. HISTORY AND PHYSICAL EXAMINATION: Well documented in the patient's chart. HOSPITAL COURSE: The patient was admitted on 07/06/2016 and underwent total knee arthroplasty. She tolerated the procedure well. There were no complications. She was transferred to the PACU postoperatively and later to the orthopedic floor for further care. She was given Ancef for antibiotic prophylaxis, SARA stockings, SCDs and aspirin for DVT prophylaxis. His hemoglobin, hematocrit and vital signs were monitored during her hospital stay and remained stable. She developed some postoperative anemia, did not require any blood transfusions. There were no complications. By postoperative day 2, she was tolerating a diabetic diet. Pain was controlled with oral pain medicine. She was participating in physical therapy and had no signs or symptoms of deep vein thrombosis. On postop day 2, she was discharged home and given printed discharge instructions, including prescriptions for extra strength Tylenol, aspirin 325 mg b.i.d., iron supplement, MS Contin and oxycodone. Continue her home medications, continue physical therapy, weightbearing as tolerated, SARA stockings. Follow up in 10-12 days or sooner if there are any problems or concerns.
[2016-12-30] MEDS ORDERED: MELO15TA4 PO (12:18)
[2016-12-30] MEDS ORDERED: VNTHFA/IN INH (12:18)
[2016-12-30] MEDS ORDERED: ATOR10TA82 PO (12:19)
[2016-12-30] MEDS ORDERED: GABA-112 PO (12:19)
== END 2016-07-08 13:03 | disposition home or self-care (01) | DRG 470 ==
LOC: ENRESERVTM → ENRESERVDT → C.ACU 08:56 → C.3E 09:24
PROVIDERS: ADMIT Orthopaedic Surgery Sports Medicine; ATTEND Orthopaedic Surgery Sports Medicine
PROC: 0SRC0J9 Replacement of Right Knee Joint with Synthetic Substitute, Cemented, Open Approach (ICD-10-PCS; principal; 2016-07-06 11:00)
DX: M17.11 Unilateral primary osteoarthritis, right knee (principal); M25.461 Effusion, right knee; J45.909 Unspecified asthma, uncomplicated; E11.9 Type 2 diabetes mellitus without complications; K21.9 Gastro-esophageal reflux disease without esophagitis; D64.9 Anemia, unspecified; F41.9 Anxiety disorder, unspecified; F32.9 Major depressive disorder, single episode, unspecified; G47.30 Sleep apnea, unspecified; E66.9 Obesity, unspecified; Z68.38 Body mass index [BMI] 38.0-38.9, adult; Z96.652 Presence of left artificial knee joint; Z79.84 Long term (current) use of oral hypoglycemic drugs; Z79.1 Long term (current) use of non-steroidal anti-inflammatories (NSAID); Z79.51 Long term (current) use of inhaled steroids; Z79.899 Other long term (current) drug therapy

== ENCOUNTER → 2017-01-25 | Outpatient (CLI) | payer OTHER ==
[~2017-01-25] MED LIST changes: -ACETAMINOPHEN 500 MG TAB PO SCH; -ALBUAER2 INH; +ATOR10TA82 PO; -BUPIVACAINE 0.25% 30 ML VIAL ONE; -BUPIVACAINE 0.5 % 5 MG/1 ML PF 10ML VIAL ONE; -BUPIVACAINE LIPOSOME 266 MG, BUPIVACAINE/EPINEPHRINE INJ 50 ML, SODIUM CHLORIDE 0.9% PF... INFIL SCH; -CEFAZOLIN 2000 MG/60 ML D5W 60 ML IV SCH; -FAMOTIDINE 20 MG TAB PO SCH; +GABA-112 PO; -GABAPENTIN 300 MG CAP PO SCH; +KETO10TA PO; -LACTATED RINGER'S 1000ML 1,000 ML IV SCH; -LACTATED RINGER'S 1000ML 500 ML IV ONE; -LACTATED RINGER'S 1000ML IV SCH; +MELO-83 PO; -MELO7.5T5 PO; -METOCLOPRAMIDE HCL 10 MG TAB PO SCH; +OXYC-57 PO; +PANT1TAB3 PO; -PANT1TAB48 PO; -SCOPOLAMINE 1.5 MG TDSY TD SCH; -TRANEXAMIC ACID INJ 1,000 MG in SODIUM CHLORIDE 0.9% 100ML 100 ML IV SCH; +VNTHFA/IN INH
[2017-01-25 17:36] LABS: BASO % 0.2 %; BASO ABS # 0.02 K/uL (0-0.2); EOS % 2.8 %; EOS ABS # 0.26 K/uL (0-0.5); HEMATOCRIT 36.5 % (37-47); HEMOGLOBIN 11.9 g/dL (12.0-16.0); IG# 0.05 K/uL (0.00-0.02); LYMPH % 15.5 %; LYMPH ABS # 1.46 K/uL (1.2-3.4); MEAN CELL VOLUME 83.3 fL (80-100); MEAN CORPUSCULAR HEMOGLOBIN 27.2 pg (25-34); MEAN CORPUSCULAR HGB CONC 32.6 g/dl (32-36); MEAN PLATELET VOLUME 10.2 fL (7.4-10.4); MONO % 6.2 %; MONO ABS # 0.58 K/uL (0.11-0.59); NEUT % 74.8 %; NEUT ABS # 7.06 K/uL (1.4-6.5); PLATELET COUNT 208 K/uL (130-400); RED CELL DISTRIBUTION WIDTH CV 13.7 % (11.5-14.5); RED CELL DISTRIBUTION WIDTH SD 41.5 fL (36.4-46.3); WHITE BLOOD COUNT 9.43 K/uL (4.8-10.8)
[2017-01-25 19:25] LABS: BLOOD UREA NITROGEN 19 mg/dl (7-18); CALCIUM 8.9 mg/dl (8.5-10.1); CARBON DIOXIDE 29 mmol/L (21-32); CREATININE 0.71 mg/dl (0.60-1.20); GLUCOSE 149 mg/dl (70-99); POTASSIUM 3.8 mmol/L (3.5-5.1); SODIUM 136 mmol/L (136-145)
== END | disposition home or self-care (01) ==
LOC: C.CPL 16:19
PROVIDERS: ATTEND Orthopaedic Surgery
DX: Z01.812 Encounter for preprocedural laboratory examination (principal); Z01.818 Encounter for other preprocedural examination; M75.121 Complete rotator cuff tear or rupture of right shoulder, not specified as traumatic

== ENCOUNTER → 2017-02-10 | Day surgery (SDC) | payer OTHER ==
[2016-12-30 12:22] VITALS: BMI 36.0
[2017-01-18 15:38] VITALS: Ht 160 cm; Wt 94.1 kg
[~2017-02-10] VITALS: Ht 160 cm; Wt 94.1 kg
[~2017-02-10] MED LIST changes: +ATROPINE SULFATE 0.1 MG/ML 5ML SYR IV PRN; +BUPIVACAINE/EPINEPHRINE 0.25% 1:200,000 30 ML VIAL ONE; +BUPIVACAINE/EPINEPHRINE 0.5% MPF 1:200,000 30 ML VIAL ONE; +CEFAZOLIN 2000MG IV PUSH 10 ML IV SCH; +DEXAMETHASONE SOD INJ 4 MG/ML VIAL ONE; +EpHEDrine SULFATE INJ 50 MG/ML AMP IV PRN; +EpINEphrine INJ 1MG/ML AMP 1 MG/ML AMP ONE; +FENTANYL CITRATE INJ 50 MCG/1 ML 2 ML VIAL IV PRN; +FENTANYL CITRATE INJ 50 MCG/1 ML 2 ML VIAL ONE; +LACTATED RINGER'S 1000ML 1,000 ML IV SCH; +LIDOCAINE HCL 2% 2 ML VIAL (20MG/ML) ONE; +MIDAZOLAM HCL 1 MG/ML 2ML VIAL ONE; +ONDANSETRON INJ 2 MG/ML 2 ML VIAL IV PRN; +ONDANSETRON INJ 2 MG/ML 2 ML VIAL ONE; +OXYCODONE/ACETAMINOPHEN 5-325 TAB PO PRN; +PROMETHAZINE HCL INJ 6.25 MG in SODIUM CHLORIDE 0.9% 50ML 50 ML IV PRN; +PROPOFOL IV EMULSION 10 MG/ML 20 ML VIAL IV ONE; +SODIUM CHLORIDE 0.9% 1000ML 1,000 ML IV SCH
--- NOTE | 2017-02-10 12:09 | Discharge Instructions-SurgCtr ---
Discharge Instructions Date of Service Feb 10, 2017. Visit Reason for Visit: Right Shoulder Full Thickness Rotator Cuff Tear Discharge Discharge Diagnosis / Problem: SAME ABOVE Discharge Goals Goal(s): Decrease discomfort, Improve function Medications Stopped Medications Name(s): HELD METFORMIN FOR 48 HOURS. ALSO MELOXICAM FOR TEN DAYS. Restart Stopped Medication(s): MAY RESTART 02/10/2017 Activity Recommendations Activity Limitations: as noted below Lifting Limitations: until after follow-up appointment Exercise/Sports Limitations: until after follow-up appointment Shower/Bathe: tomorrow Anesthesia . Post Anesthesia Instructions: If you have had General Anesthesia or IV Sedation: * Do not drive today. * Resume driving when surgeon permits. * Do not make important decisions or sign legal documents today. * Call surgeon for: 1. Temperature elevations greater than 101 degrees F. 2. Uncontrollable pain. 3. Excessive bleeding. 4. Persistent nausea and vomiting. 5. Medication intolerance (nausea, vomiting or rash). * For nausea and vomiting use only clear liquids such as: tea, soda, bouillon until nausea subsides, then gradually increase diet as tolerated. * If you have any concerns or questions, call your surgeon's office. If physician is unavailable and it is an emergency, call 911 or go to the nearest emergency room. . Instructions / Follow-Up Instructions / Follow-Up MEDICATIONS: * Resume previous medications unless instructed otherwise by your surgeon. * Always take pain medication on a full stomach or with food to avoid upset stomach. * Do not drink alcohol or drive while taking narcotics. * Ibuprofen or Tylenol may be taken if narcotic not needed. SPECIAL CARE INSTRUCTIONS: __ None _X_ Keep extremity elevated and iced x 48 hours; apply ice 20-30 minutes 8-10 times/day. May remove at night. __ Sling __24 hrs/day __ Remove at night _X_ Shoulder Immobilizer (MAY REMOVE AFTER 48 HOURS TO SHOWER ONLY) _X_ 24 hrs/day __ Remove at night _X_ Dressing __ Maintain until seen in office, may shower with plastic over site _X_ Remove dressings in 24-48 hours and then may shower _X_ Cover incisions with band-aids after showering __ Do not remove steri-strips Call physician if chills or temperature rises above 102 degrees or pain unrelieved by prescribed pain medications at . . Diet Recommendations Home Diet: no limitations Fluid Restriction: None Procedures Procedures Performed: Right Shoulder Arthroscopy, Acromioplasty, Arthroscopic Biceps Tenodesis, Medium Rotator Cuff Repair Pending Studies Studies pending at discharge: no Work Instructions Return To Work: after follow-up Lifting Limitations: NO LIFTING WITH RIGHT ARM Medical Emergencies . Who to Call and When: Medical Emergencies: If at any time you feel your situation is an emergency, please call 911 immediately. . Non-Emergent Contact Non-Emergency issues call your: Primary Care Provider Call Non-Emergent contact if: you have a fever, temperature is above 101.5 . . "Provider Documentation" section prepared by Foster Brenner. .
--- NOTE | 2017-02-10 12:09 | [facility] Post Operative Brief Note ---
Immediate Operative Summary Operative Date Feb 10, 2017. Pre-Operative Diagnosis Right Shoulder Full Thickness Rotator Cuff Tear Post-Operative Diagnosis same Procedure(s) Performed Right Shoulder Arthroscopy, Acromioplasty, Arthroscopic Biceps Tenodesis, Medium Rotator Cuff Repair Surgeon Dr Dodge Back Winder Surgeon(s) RIYA Landrum Estimated Blood Loss 5 mL Findings as above Specimens none Complication(s) None Disposition Recovery Room / PACU
[2017-02-10 12:15] VITALS: TEMP 36.9
--- NOTE | 2017-02-10 12:30 | OPERATIVE REPORT ---
DATE OF OPERATION: 02/10/2017 PREOPERATIVE DIAGNOSIS: Medium sized rotator cuff tear of the right shoulder. POSTOPERATIVE DIAGNOSES: Medium sized rotator cuff tear, biceps tendinosis and acromioclavicular joint arthritis. PROCEDURE: Right shoulder diagnostic arthroscopy with limited debridement, acromioplasty, distal clavicle resection, medium sized rotator cuff repair and arthroscopic biceps tenodesis. SURGEON: Dr. Jorge Dodge. TRANSPORT MEDIC: Bert Brenner PA-C, whose assistance was necessary for positioning the arm and helping with instrumentation and closure. ANESTHESIA: Sedation with a right interscalene nerve block. COMPLICATIONS: None. CONDITION: Stable to PACU. INDICATIONS: Misty is a pleasant 56-year-old female who underwent a total knee arthroplasty about 6 months ago. After the surgery from using a walker, she had a significant increase in pain of her right shoulder. MRI and clinical examination were diagnostic for a medium sized rotator cuff tear. After failing conservative treatment, she elected to undergo arthroscopy. DESCRIPTION OF PROCEDURE: On 02/10/2017, she arrived at [facility] for the above procedure. She was seen in the preoperative holding area and the operative extremity was identified and signed. She was given a preoperative antibiotic and a right interscalene nerve block. She was taken back to the operating room, laid on the table in supine position and put under basic sedation. She was then put into the beachchair position. The right shoulder was prepped and draped in sterile fashion. Time-out was done and the patient's operative extremity was properly identified. A scope was introduced in the posterior portal. Diagnostic arthroscopy showed no cartilage damage to the humeral head or the glenoid. The biceps tendon was slightly frayed. There was a little fraying of the upper border of subscapularis, though it was basically intact. There was a tear of the entire supraspinatus. The infraspinatus, teres minor and subscapularis were all checked and intact. An anterior portal was made. A shaver was used to do a limited debridement of the intraarticular structures and the biceps tendon was arthroscopically tenotomized for later tenodesis. A scope was then put into the subacromial space. A lateral portal was made. A shaver was used to do a complete subacromial and subdeltoid bursectomy. An ablator was used to tease the coracoacromial ligament off the undersurface of the acromion and a 5-0 jessica was used to complete an acromioplasty of a Bigliani type 3 acromion. A shaver was used to remove any excess debris and attention was turned to the rotator cuff. It was a U-shaped rotator cuff tear with extension almost back to the level of the glenoid. The biceps brittany mechanism was exposed. An additional anterolateral portal was made and Oma cannulas were placed in each of the lateral portals. The greater tuberosity was prepared with a ring curette and a microfracture. The rotator cuff was then fixed with an Arthrex SpeedBridge configuration using 4.75-mm BioComposite SwiveLock suture anchors and FiberTapes. Two additional tag sutures were used for dog ears. I was able to get a nice repair. Attention was then turned to the distal clavicle. Through the anterior portal, a shaver and ablator were used to skeletonize this clavicle. A 5-0 jessica was seen used to resect the distal 5 mm from the clavicle. Complete resection was checked under direct visualization. The scope was then placed back into the glenohumeral joint and the articular margin of the rotator cuff had been restored. Pictures were taken. Arthroscopic instruments were removed from the shoulder. Portal sites were closed with 3-0 nylon. She was then placed in a soft dressing and an abduction arm sling. She was then extubated, [facility] and taken to the postanesthesia care unit in stable condition. She tolerated the procedure well. I attest to the content of the Intraoperative Record and any orders documented therein. Any exception s are noted below.
--- NOTE | 2017-02-10 12:35 | Anesthesiology Progress Note ---
Anesthesia Post Op Note Date & Time Feb 10, 2017 at 12:35 Vital Signs Pain Intensity: 0 Vital Signs Past 12 Hours Date Time Temp Pulse Resp B/P (MAP) Pulse Ox O2 Delivery O2 Flow Rate FiO2 02/10/17 10:43 84 02/10/17 10:43 84 25 97 02/10/17 10:42 80 22 96 02/10/17 10:42 81 02/10/17 10:41 116/60 02/10/17 10:40 82 16 97 02/10/17 10:40 81 02/10/17 10:36 116/69 02/10/17 10:35 70 02/10/17 10:35 71 27 100 02/10/17 10:31 129/68 02/10/17 10:30 73 02/10/17 10:30 73 0 98 02/10/17 10:28 122/69 02/10/17 10:25 74 0 02/10/17 10:20 86 0 02/10/17 10:15 77 0 02/10/17 10:10 78 0 02/10/17 10:05 77 0 02/10/17 10:00 77 0 02/10/17 09:55 78 0 02/10/17 09:50 81 0 02/10/17 09:45 78 0 02/10/17 09:40 75 0 02/10/17 09:35 75 0 02/10/17 09:30 74 0 02/10/17 09:25 73 0 02/10/17 09:20 76 0 02/10/17 09:15 75 0 02/10/17 09:10 79 0 02/10/17 07:46 36.4 82 18 132/77 (95) 94 Room Air Notes Mental Status: alert / awake / arousable, participated in evaluation Pt Amnestic to Procedure: Yes Nausea / Vomiting: adequately controlled Pain: adequately controlled Airway Patency, RR, SpO2: stable & adequate BP & HR: stable & adequate Hydration State: stable & adequate Anesthetic Complications: no major complications apparent
[2017-02-10 12:50] VITALS: BP 141/85; PULSE 94; O2SAT 96
== END | disposition home or self-care (01) ==
LOC: X.SURG 07:49
PROVIDERS: ATTEND Orthopaedic Surgery
DX: M75.101 Unspecified rotator cuff tear or rupture of right shoulder, not specified as traumatic (principal); K21.9 Gastro-esophageal reflux disease without esophagitis; F32.9 Major depressive disorder, single episode, unspecified; E11.9 Type 2 diabetes mellitus without complications; J45.909 Unspecified asthma, uncomplicated; Z85.828 Personal history of other malignant neoplasm of skin

== ENCOUNTER → 2017-09-15 | Outpatient (CLI) | payer OTHER ==
[~2017-09-15] MED LIST changes: -ATROPINE SULFATE 0.1 MG/ML 5ML SYR IV PRN; -BUPIVACAINE/EPINEPHRINE 0.25% 1:200,000 30 ML VIAL ONE; -BUPIVACAINE/EPINEPHRINE 0.5% MPF 1:200,000 30 ML VIAL ONE; -CEFAZOLIN 2000MG IV PUSH 10 ML IV SCH; -DEXAMETHASONE SOD INJ 4 MG/ML VIAL ONE; -EpHEDrine SULFATE INJ 50 MG/ML AMP IV PRN; -EpINEphrine INJ 1MG/ML AMP 1 MG/ML AMP ONE; -FENTANYL CITRATE INJ 50 MCG/1 ML 2 ML VIAL IV PRN; -FENTANYL CITRATE INJ 50 MCG/1 ML 2 ML VIAL ONE; -KETO10TA PO; -LACTATED RINGER'S 1000ML 1,000 ML IV SCH; -LIDOCAINE HCL 2% 2 ML VIAL (20MG/ML) ONE; -MIDAZOLAM HCL 1 MG/ML 2ML VIAL ONE; -ONDANSETRON INJ 2 MG/ML 2 ML VIAL IV PRN; -ONDANSETRON INJ 2 MG/ML 2 ML VIAL ONE; -OXYC-57 PO; -OXYCODONE/ACETAMINOPHEN 5-325 TAB PO PRN; -PROMETHAZINE HCL INJ 6.25 MG in SODIUM CHLORIDE 0.9% 50ML 50 ML IV PRN; -PROPOFOL IV EMULSION 10 MG/ML 20 ML VIAL IV ONE; -SODIUM CHLORIDE 0.9% 1000ML 1,000 ML IV SCH
[2017-09-15 18:09] LABS: BASO % 0.1 %; BASO ABS # 0.01 K/uL (0-0.2); EOS % 1.8 %; EOS ABS # 0.17 K/uL (0-0.5); HEMATOCRIT 36.3 % (37-47); IG# 0.04 K/uL (0.00-0.02); LYMPH % 9.1 %; LYMPH ABS # 0.86 K/uL (1.2-3.4); MEAN CELL VOLUME 80.3 fL (80-100); MEAN CORPUSCULAR HEMOGLOBIN 26.5 pg (25-34); MEAN CORPUSCULAR HGB CONC 33.1 g/dl (32-36); MEAN PLATELET VOLUME 9.7 fL (7.4-10.4); MONO % 6.6 %; MONO ABS # 0.62 K/uL (0.11-0.59); NEUT ABS # 7.72 K/uL (1.4-6.5); PLATELET COUNT 218 K/uL (130-400); WHITE BLOOD COUNT 9.42 K/uL (4.8-10.8)
[2017-09-15 18:30] LABS: ALBUMIN 3.6 gm/dl (3.4-5.0); ALKALINE PHOSPHATASE 68 U/L (45-117); ALT/SGPT 26 U/L (12-78); AST/SGOT 24 U/L (15-37); BLOOD UREA NITROGEN 14 mg/dl (7-18); CARBON DIOXIDE 29 mmol/L (21-32); CREATININE 0.76 mg/dl (0.60-1.20); GLUCOSE 101 mg/dl (70-99); POTASSIUM 3.1 mmol/L (3.5-5.1); SODIUM 139 mmol/L (136-145); TOTAL PROTEIN 7.6 gm/dl (6.4-8.2)
== END | disposition home or self-care (01) ==
LOC: C.LAB 17:41
PROVIDERS: ATTEND Registered Nurse
DX: R68.83 Chills (without fever) (principal)

== ENCOUNTER → 2017-09-21 | Outpatient (CLI) | payer OTHER ==
[~2017-09-21] MED LIST changes: +OPTIRAY 320 IV PRN
--- NOTE | 2017-09-21 15:34 | DIAGNOSTIC IMAGING REPORT ---
CT SCAN OF THE ABDOMEN AND PELVIS WITH IV CONTRAST CLINICAL HISTORY: Generalized abdominal pain. Diarrhea. COMPARISON STUDY: Abdominal CT dated 08/04/2015. TECHNIQUE: Following the IV administration of 119 cc of Optiray 320, CT scan of the abdomen and pelvis is performed from the lung bases to the proximal femora. Images are reviewed in the axial, sagittal, and coronal planes. IV contrast was administered without complication. A dose lowering technique was utilized adhering to the principles of ALARA. CT DOSE: 1107.81 mGy.cm FINDINGS: Lung bases: The heart is normal in size and without pericardial effusion. The lung bases are clear. Liver: The contrast-enhanced liver is normal in size, contour, and attenuation. There is no intrahepatic biliary ductal dilatation. The hepatic veins and portal veins are patent. Gallbladder: Surgically absent noting clips in the gallbladder fossa. Spleen: Top normal in size measuring 13 cm in length. A peripherally calcified splenic artery aneurysm measures up to 11 mm. Pancreas: Unremarkable. Adrenal glands: Unremarkable. Kidneys: The contrast enhanced kidneys are normal in size and without hydronephrosis. The kidneys enhance symmetrically. There are at least 2 small nonobstructing left renal calculi which measure up to 3 mm. Parapelvic cysts are noted on the left. Scattered subcentimeter cortical hypodensities also likely represent cysts but are too small for definitive characterization. Abdominal vasculature: The abdominal aorta is normal in course and caliber noting mild atherosclerotic calcification. Bowel: There are postoperative changes from sigmoid colon resection with colocolonic anastomosis. No bowel obstruction is seen. There is mild to moderate diverticulosis of the remaining colon without CT evidence of acute diverticulitis. Mild wall thickening is seen throughout the colon and there are prominent pericolonic lymph nodes. The appearance suggests a mild pancolitis. The appendix is well-visualized and normal. Peritoneum: There is no intraperitoneal free air or abdominal ascites. Lymphadenopathy: Prominent mesenteric lymph nodes in the right lower quadrant measure up to 8 mm in short axis. Pelvic viscera: The bladder is decompressed and not well evaluated. The uterus is surgically absent. No adnexal lesion is seen. Skeletal structures: The skeletal structures are osteopenic. Mild lumbosacral spondylosis is observed. No lytic or blastic lesions are seen. IMPRESSION: 1. Findings suggest a mild nonspecific pancolitis, likely on an infectious or inflammatory basis in this age group. Clinical correlation will be required. 2. There are postoperative changes from sigmoid colon resection with colocolonic anastomosis. No bowel obstruction is identified. 3. There is mild to moderate diverticulosis of the remaining colon without CT evidence of acute diverticulitis. 4. There are tiny nonobstructing left renal calculi. 5. Additional findings as above. Electronically signed by: Anjel Hugo M.D. 09/21/2017 3:33 PM Dictated Date/Time: 09/21/2017 3:25 PM
[2017-09-21 16:52] LABS: BLOOD UREA NITROGEN 10 mg/dl (7-18); CALCIUM 9.1 mg/dl (8.5-10.1); CARBON DIOXIDE 31 mmol/L (21-32); CREATININE 0.71 mg/dl (0.60-1.20); GLUCOSE 84 mg/dl (70-99); POTASSIUM 2.7 mmol/L (3.5-5.1); SODIUM 135 mmol/L (136-145)
== END | disposition home or self-care (01) ==
LOC: C.CTS 13:07
PROVIDERS: ATTEND Registered Nurse
DX: R19.7 Diarrhea, unspecified (principal); R10.9 Unspecified abdominal pain; R68.83 Chills (without fever); R79.82 Elevated C-reactive protein (CRP); K57.90 Diverticulosis of intestine, part unspecified, without perforation or abscess without bleeding

== ENCOUNTER → 2017-09-26 | Day surgery (SDC) | payer OTHER ==
[2017-09-22 14:55] VITALS: BMI 37.0
[~2017-09-26] VITALS: Ht 160 cm; Wt 95.5 kg
[~2017-09-26] MED LIST changes: +LIDOCAINE HCL 2% 2 ML VIAL (20MG/ML) ONE; -OPTIRAY 320 IV PRN; +PROPOFOL IV EMULSION 10 MG/ML 20 ML VIAL ONE
[2017-09-26 12:49] VITALS: Ht 160 cm; Wt 95.5 kg
[2017-09-26 12:55] VITALS: TEMP 37
--- NOTE | 2017-09-26 13:01 | Endo History and Physical ---
History & Physical Date of Service: Sep 26, 2017. Chief Complaint: Diarrhea, Abnormal CT scan Referring Physician: Dr. Velázquez History of Present Illness 57 yo CF who presents for Colonoscopy secondary to diarrhea and abnormal CT Scan. Past Surgical History Hx Cardiac Surgery: No Hx Internal Defibrillator: No Hx Pacemaker: No Hx Abdominal Surgery: Yes (PARTIAL COLON RESECTION, DESTINY, TUBAL LIGATION, URSZULA BSO, D&C, X 2) Hx of Implantable Prosthesis: No Hx Post-Op Nausea and Vomiting: No Hx Cancer Surgery: No Hx Thoracic Surgery: No Hx Orthopedic: Yes (RT/LEFT KNEE ARTHROSCOPY, LEFT/RT TKA) Hx Urinary Tract Surgery: No Family History None Social History Smoking Status: Never Smoker Hx Substance Use: No Hx Alcohol Use: Yes (RARELY) Allergies Coded Allergies: No Known Allergies (Unverified , 09/22/17) Current Medications Reported Home Medications Medications Dose Route/Sig Max Daily Dose Days Date Category Neurontin (Gabapentin) 100 Mg Cap 100 Mg PO TID 12/30/16 Reported Lipitor (Atorvastatin Calcium) 10 Mg Tab 10 Mg PO HS 12/30/16 Reported Ventolin Hfa (Albuterol) 200 Puffs/50570 Mcg Aers 2 Puffs INH QID PRN 12/30/16 Reported Meloxicam 15 Mg Tab 15 Mg PO QAM 12/30/16 Reported Breo Ellipta (Fluticasone Furoate-Vilanterol) 1 Inh Inh 1 Inha INH QAM 07/02/16 Reported Tylenol (Acetaminophen) 500 Mg Tab 1,000 Mg PO Q8 PRN 06/18/16 Reported Kp Melatonin (Melatonin) 3 Mg Tab 3 Mg PO HS PRN 07/17/15 Reported Protonix (Pantoprazole) 40 Mg Tab 40 Mg PO QPM 07/17/15 Reported Ativan (Lorazepam) 1 Mg Tab 1 Mg PO QPM 07/17/15 Reported Zoloft (Sertraline HCl) 100 Mg Tab 100 Mg PO QPM 07/17/15 Reported Glimepiride 2 Mg Tab 2 Mg PO QAM 06/25/13 Reported Glucophage (Metformin Hcl) 1,000 Mg Tab 1,000 Mg PO BID 06/25/13 Reported Vital Signs Weight (Kilograms): 95.45 Height (Feet): 5 Height (Inches): 3 Date Time Temp Pulse Resp B/P (MAP) Pulse Ox O2 Delivery O2 Flow Rate FiO2 09/26/17 12:55 37.0 88 20 121/71 (88) 95 Room Air Physical Exam General Appearance: WD/WN, no apparent distress Respiratory/Chest: Auscultation: breath sounds normal Cardiovascular: Heart Auscultation: RRR Abdomen: Bowel Sounds: normal Inspection & Palpation: soft, non-distended, no tenderness, guarding & rebound Assessment and Plan Assessment: 57 yo CF who presents for Colonoscopy secondary to diarrhea and abnormal CT Scan. Plan: Proceed with colonoscopy.
--- NOTE | 2017-09-26 14:39 | Discharge Instructions ---
Endoscopy Patient Instructions Date / Procedure(s) Performed Sep 26, 2017. Colonoscopy Allergy Information Coded Allergies: No Known Allergies (Unverified , 09/22/17) Discharge Date / Findings Sep 26, 2017. Ileitis s/p biopsies Random colon biopsies Diverticulosis Sigmoid Anastomosis Medication Instructions OK to resume all medications today as prescribed Reported Home Medications Medications Dose Route/Sig Max Daily Dose Days Date Category Neurontin (Gabapentin) 100 Mg Cap 100 Mg PO TID 12/30/16 Reported Lipitor (Atorvastatin Calcium) 10 Mg Tab 10 Mg PO HS 12/30/16 Reported Ventolin Hfa (Albuterol) 200 Puffs/57362 Mcg Aers 2 Puffs INH QID PRN 12/30/16 Reported Meloxicam 15 Mg Tab 15 Mg PO QAM 12/30/16 Reported Breo Ellipta (Fluticasone Furoate-Vilanterol) 1 Inh Inh 1 Inha INH QAM 07/02/16 Reported Tylenol (Acetaminophen) 500 Mg Tab 1,000 Mg PO Q8 PRN 06/18/16 Reported Kp Melatonin (Melatonin) 3 Mg Tab 3 Mg PO HS PRN 07/17/15 Reported Protonix (Pantoprazole) 40 Mg Tab 40 Mg PO QPM 07/17/15 Reported Ativan (Lorazepam) 1 Mg Tab 1 Mg PO QPM 07/17/15 Reported Zoloft (Sertraline HCl) 100 Mg Tab 100 Mg PO QPM 07/17/15 Reported Glimepiride 2 Mg Tab 2 Mg PO QAM 06/25/13 Reported Glucophage (Metformin Hcl) 1,000 Mg Tab 1,000 Mg PO BID 06/25/13 Reported Provider Instructions Activity Restrictions - No exercising or heavy lifting for 24 hours. - Do not drink alcohol the day of the procedure. - Do not drive a car or operate machinery until the day after the procedure. - Do not make any important decisions or sign important papers in 24 hours after the procedure. Following Day: - Return to full activity which may include returning to work/school. Diet Start your diet with liquids and light foods (jello, soup, juice, toast). Then eat your usual diet if not nauseated. Treatment For Common After Affects For mild abdominal pain, bloating, or excessive gas: - Rest - Eat lightly - Lie on right side Follow-Up Information Follow-up with DR. SMITH as scheduled Anesthesia Information What You Should Know You have had a procedure that required some medicine to reduce anxiety and discomfort. This treatment is called moderate sedation. After receiving the treatment, you may be sleepy, but you will be able to breathe on your own. The effects of the treatment may last for several hours. Follow these instructions along with Activity/Diet recommendations noted above: * Do NOT do anything where dizziness or clumsiness would be dangerous. * Rest quietly at home today, then you can be up and about tomorrow. * Have a responsible person stay with you the rest of today. * You may have had an I.V. today. If so, you may take the dressing off later today. Recommendations Call your doctor if: * Trouble breathing * Continuous vomiting for more than 24 hours * Temperature above 101 degrees * Severe abdominal pain or bloating * Pain not relieved by pain medicine ordered * There is increased drainage or redness from any incision * A large amount of rectal bleeding greater than 2-3 tablespoons. (If you had a polyp/s removed or have hemorrhoids, a small amount of blood - from the rectum is to be expected.) * You have any unanswered questions or concerns. IN THE EVENT OF A SERIOUS EMERGENCY, GO TO THE NEAREST EMERGENCY ROOM Your discharge instructions were prepared by provider Cosmo Lopez. Patient Instructions Signature Page Misty Alaniz Patient (or Guardian) Signature/Date: I have read and understand the instructions given to me by my caregivers. Caregiver/RN/Doctor Signature/Date: The above-named patient and/or guardian has received patient instructions on this date. + Original Patient Signature Page (only) stays with chart. Please make copy for patient.
[2017-09-26 14:46] VITALS: BP 117/77; PULSE 87; O2SAT 96
--- NOTE | 2017-09-26 14:55 | Anesthesiology Progress Note ---
Anesthesia Post Op Note Date & Time Sep 26, 2017 at 14:55 Vital Signs Pain Intensity: 0 Vital Signs Past 12 Hours Date Time Temp Pulse Resp B/P (MAP) Pulse Ox O2 Delivery O2 Flow Rate FiO2 09/26/17 14:46 87 20 117/77 (90) 96 Room Air 09/26/17 14:30 89 20 104/65 (78) 95 Room Air 09/26/17 14:24 95 20 103/69 (80) 94 Room Air 09/26/17 12:55 37.0 88 20 121/71 (88) 95 Room Air Notes Mental Status: alert / awake / arousable, participated in evaluation Pt Amnestic to Procedure: Yes Nausea / Vomiting: adequately controlled Pain: adequately controlled Airway Patency, RR, SpO2: stable & adequate BP & HR: stable & adequate Hydration State: stable & adequate Anesthetic Complications: no major complications apparent
--- NOTE | 2017-09-26 14:59 | GI REPORT ---
Patient Name: Misty Alaniz Procedure Date: 09/26/2017 12:53 PM Date of : 1960 Admit Type: Outpatient Age: 57 Gender: Female Attending MD: Cosmo Lopez DO Procedure: Colonoscopy Providers: Cosmo Lopez DO Referring MD: Naila Velázquez Md Indications: Chronic diarrhea, Abnormal CT of the GI tract Medicines: Monitored Anesthesia Care Complications: No immediate complications. Estimated Blood Loss: Estimated blood loss: none. Procedure: Pre-Anesthesia Assessment: - Prior to the procedure, a History and Physical was performed, and patient medications and allergies were reviewed. The patient's tolerance of previous anesthesia was also reviewed. The risks and benefits of the procedure and the sedation options and risks were discussed with the patient. All questions were answered, and informed consent was obtained. Prior Anticoagulants: The patient has taken no previous anticoagulant or antiplatelet agents. ASA Grade Assessment: III - A patient with severe systemic disease. After reviewing the risks and benefits, the patient was deemed in satisfactory condition to undergo the procedure. After I obtained informed consent, the scope was passed under direct vision. Throughout the procedure, the patient's blood pressure, pulse, and oxygen saturations were monitored continuously. The scope was introduced through the anus and advanced to the terminal ileum. The colonoscopy was performed without difficulty. The patient tolerated the procedure well. The quality of the bowel preparation was good. The terminal ileum, ileocecal valve, appendiceal orifice, and rectum were photographed. Findings: The perianal and digital rectal examinations were normal. The terminal ileum contained multiple four mm ulcers. No bleeding was present. Biopsies were taken with a cold forceps for histology. Several random biopsies were obtained with cold forceps for histology in the entire colon. Multiple small-mouthed diverticula were found in the sigmoid colon. There was evidence of a prior end-to-side colo-colonic anastomosis in the sigmoid colon. This was patent and was characterized by healthy appearing mucosa. The anastomosis was traversed. Impression: - Multiple ulcers in the terminal ileum. Biopsied. - Diverticulosis in the sigmoid colon. - Patent end-to-side colo-colonic anastomosis, characterized by healthy appearing mucosa. - Several random biopsies were obtained in the entire colon. Recommendation: - Resume previous diet. - Continue present medications. - Await pathology results. - Return to primary care physician as previously scheduled. Cosmo Lopez, DO 09/26/2017 2:59:03 PM This report has been signed electronically. Note Initiated On: 09/26/2017 12:53 PM Number of Addenda: 0 I attest to the content of the Intraoperative Record and orders documented therein, exceptions below {[id number]}
== END | disposition home or self-care (01) ==
LOC: C.GI 12:25
PROVIDERS: ATTEND Internal Medicine
DX: R19.7 Diarrhea, unspecified (principal); R93.3 Abnormal findings on diagnostic imaging of other parts of digestive tract; K57.30 Diverticulosis of large intestine without perforation or abscess without bleeding; K21.9 Gastro-esophageal reflux disease without esophagitis; E78.5 Hyperlipidemia, unspecified; E11.9 Type 2 diabetes mellitus without complications; J45.909 Unspecified asthma, uncomplicated; Z96.653 Presence of artificial knee joint, bilateral; Z90.49 Acquired absence of other specified parts of digestive tract; Z90.710 Acquired absence of both cervix and uterus; Z90.722 Acquired absence of ovaries, bilateral; Z90.79 Acquired absence of other genital organ(s)

== ENCOUNTER → 2017-10-04 | Outpatient (CLI) | payer OTHER ==
[~2017-10-04] MED LIST changes: -LIDOCAINE HCL 2% 2 ML VIAL (20MG/ML) ONE; -PROPOFOL IV EMULSION 10 MG/ML 20 ML VIAL ONE
[2017-10-04 17:25] LABS: BASO % 0.3 %; BASO ABS # 0.02 K/uL (0-0.2); EOS % 1.1 %; EOS ABS # 0.08 K/uL (0-0.5); HEMATOCRIT 35.5 % (37-47); HEMOGLOBIN 11.3 g/dL (12.0-16.0); IG# 0.03 K/uL (0.00-0.02); LYMPH % 13.9 %; LYMPH ABS # 1.02 K/uL (1.2-3.4); MEAN CELL VOLUME 82.4 fL (80-100); MEAN CORPUSCULAR HEMOGLOBIN 26.2 pg (25-34); MEAN CORPUSCULAR HGB CONC 31.8 g/dl (32-36); MEAN PLATELET VOLUME 10.2 fL (7.4-10.4); MONO % 6.4 %; MONO ABS # 0.47 K/uL (0.11-0.59); NEUT % 77.9 %; NEUT ABS # 5.72 K/uL (1.4-6.5); PLATELET COUNT 215 K/uL (130-400); RED CELL DISTRIBUTION WIDTH CV 14.8 % (11.5-14.5); RED CELL DISTRIBUTION WIDTH SD 44.1 fL (36.4-46.3); WHITE BLOOD COUNT 7.34 K/uL (4.8-10.8)
[2017-10-04 17:53] LABS: ALBUMIN 3.5 gm/dl (3.4-5.0); ALKALINE PHOSPHATASE 64 U/L (45-117); ALT/SGPT 23 U/L (12-78); AST/SGOT 23 U/L (15-37); BLOOD UREA NITROGEN 10 mg/dl (7-18); CALCIUM 8.7 mg/dl (8.5-10.1); CARBON DIOXIDE 29 mmol/L (21-32); CREATININE 0.61 mg/dl (0.60-1.20); GLUCOSE 117 mg/dl (70-99); POTASSIUM 3.5 mmol/L (3.5-5.1); SODIUM 140 mmol/L (136-145); TOTAL PROTEIN 7.2 gm/dl (6.4-8.2)
== END | disposition home or self-care (01) ==
LOC: C.LAB 16:26
PROVIDERS: ATTEND Registered Nurse
DX: K63.3 Ulcer of intestine (principal); K52.9 Noninfective gastroenteritis and colitis, unspecified; R10.9 Unspecified abdominal pain; R93.5 Abnormal findings on diagnostic imaging of other abdominal regions, including retroperitoneum; R79.82 Elevated C-reactive protein (CRP); E87.6 Hypokalemia